=== PATIENT | male | born 1965 | race Caucasian/White ===

== ENCOUNTER → 2016-08-30 | Outpatient (CLI) | payer BC ==
[~2016-08-30] MED LIST: AMPH30TA2 PO; ATOR10TA66 PO; LOSA50TA2 PO; METF500T4 PO; SULF1TAB35 PO
== END ==
LOC: CARD 12:13
PROVIDERS: ATTEND Internal Medicine Cardiovascular Disease
DX: E13.9 Other specified diabetes mellitus without complications (principal); I10 Essential (primary) hypertension; R53.83 Other fatigue; R07.89 Other chest pain

== ENCOUNTER 2016-09-02 21:15 | Outpatient (CLI) | payer BC ==
[~2016-09-02 21:15] MED LIST changes: -CATHETER FLUSH 10 ML SYR IV PRN
== END 2016-09-03 06:40 | disposition home or self-care (01) ==
LOC: SLEEP 21:15
PROVIDERS: ATTEND Internal Medicine Cardiovascular Disease
DX: G47.10 Hypersomnia, unspecified (principal); G47.30 Sleep apnea, unspecified; G47.00 Insomnia, unspecified; R06.83 Snoring
CPT/HCPCS: 95810

== ENCOUNTER → 2016-09-02 | Outpatient (CLI) | payer BC ==
[~2016-09-02] MED LIST changes: +CATHETER FLUSH 10 ML SYR IV PRN
[2016-09-02 09:12] VITALS: BP 150/86
== END ==
LOC: CARD 07:30
PROVIDERS: ATTEND Internal Medicine Cardiovascular Disease
DX: R07.89 Other chest pain (principal); I10 Essential (primary) hypertension; E11.9 Type 2 diabetes mellitus without complications; R53.83 Other fatigue
CPT/HCPCS: 78452; 93017

== ENCOUNTER → 2018-07-17 | Outpatient (CLI) | payer BC ==
[~2018-07-17] MED LIST changes: +METF-397 PO; -METF500T4 PO
--- NOTE | 2018-07-17 10:04 | Diagnostic Imaging Report ---
PROCEDURE: US Hepatic (Liver). TECHNIQUE: Multiple real-time grayscale images were obtained over the right upper quadrant in various projections. INDICATION: Elevated liver enzymes. The liver is upper limits of normal in size at 17.4 cm. There is diffuse increased echogenicity consistent with hepatic steatosis. No discrete liver mass is identified. The portal vein is patent and demonstrates normal direction of flow. The gallbladder does appear to be partly contracted. No stones are identified. No wall thickening or biliary duct dilatation is seen. Pancreas is obscured by bowel gas. Right kidney is unremarkable. No calculi or hydronephrosis is identified. There is no ascites. IMPRESSION: 1. Hepatic steatosis. 2. Mild gallbladder contraction. No cholelithiasis or acute cholecystitis is identified. Dictated by: Dictated on workstation # [id number]
== END ==
LOC: RAD 08:38
PROVIDERS: ATTEND Nurse Practitioner Family
DX: K76.0 Fatty (change of) liver, not elsewhere classified (principal); K82.0 Obstruction of gallbladder
CPT/HCPCS: 76705